=== PATIENT | male | born 1995 | race African-American/Black ===

== ENCOUNTER 2017-02-06 15:05 | Emergency (ER) | payer OTHER ==
[2017-02-06] MEDS ORDERED: SODIUM CHLORIDE 0.9% 1,000 ML IV STA (15:56)
--- NOTE | 2017-02-06 16:15 | ED ---
General Adult HPI - General Chief complaint: Extremity Injury, Upper Stated complaint: Arm Pain/Injury Time Seen by Provider: 02/06/17 15:18 Source: patient, RN notes reviewed Mode of arrival: ambulatory Limitations: no limitations - History of Present Illness Initial comments: This is a 21-year-old male who presents to the emergency department today with chief complaint of electrocution. Patient claims he was swiping his credit card in the vending machine earlier today at [facility] when he was shocked by the vending machine. He reports he felt the shock run up his left arm and that he was "grabbed by the vending machine" for a couple of seconds. He reports his left elbow is painful and he is unable to move it. He reports it is painful when placed in dependent position and feels better when in flexion and supported by right arm. Denies fever, chills, chest pain, shortness of breath, abdominal pain, nausea, vomiting, dysuria, hematuria, numbess, tingling, headache or vision changes. - Related Data Previous Rx's Medication Instructions Recorded Ibuprofen [Motrin] 800 mg PO Q6HR #30 tab 02/06/17 Allergies Allergy/AdvReac Type Severity Reaction Status Date / Time No Known Drug Allergies Allergy Unknown Unknown Verified 02/06/17 15:21 Review of Systems ROS Statement: Those systems with pertinent positive or pertinent negative responses have been documented in the HPI. ROS Other: All systems not noted in ROS Statement are negative. Past Medical History Past Medical History: No Reported History History of Any Multi-Drug Resistant Organisms: None Reported Past Surgical History: No Surgical Hx Reported Past Psychological History: No Psychological Hx Reported Smoking Status: Never smoker Past Alcohol Use History: None Reported Past Drug Use History: None Reported General Exam - General Exam Comments Initial Comments: General: Awake and alert, well-developed; in no apparent distress. HEENT: Head atraumatic, normocephalic. Pupils are equal, round and reactive to light. Extraocular movements intact. Neck: Supple. Normal ROM. Cardiovascular: Regular rate and rhythm. No murmurs, rubs or gallops. Chest symmetrical. Respiratory: Lungs clear to auscultation bilaterally. No wheezes, rales or rhonchi. Normal respiratory effort with no use of accessory muscles. Musculoskeletal: Left arm is held in flexion across body. Tenderness is elicited with palpation of left proximal forearm up to distal arm. No evidence of soft tissue swelling, omer or lacerations. Limited ROM. Patient refuses to further flex or extend elbow. Skin: [place], warm and dry without rashes or lesions. Neurological: Alert and oriented x3. CN II-XII grossly intact. Speech is fluent and answers are appropriate. No focal neuro deficits. Psychiatric: Normal mood and affect. No overt signs of depression or anxiety noted. Limitations: no limitations Course Vital Signs 02/06/17 02/06/17 02/06/17 15:21 17:00 17:48 Temperature 98.2 F Pulse Rate 60 58 L 56 L Respiratory 16 19 17 Rate Blood Pressure 146/76 133/61 124/69 O2 Sat by Pulse 98 100 100 Oximetry 02/06/17 18:03 Temperature 97.8 F Pulse Rate 54 L Respiratory 18 Rate Blood Pressure 112/60 O2 Sat by Pulse 99 Oximetry EKG Findings - EKG Comments: EKG Findings:: EKG performed at 15:44. Sinus bradycardia. RSR' or QR pattern in V1 suggests right ventricular conduction delay. ST elevation, probably due to early repolarization. Ventricular rate 54 bpm, CA interval 154, QRS duration 96, QT/QTc 452/428. Medical Decision Making - Medical Decision Making This case was discussed with attending physician, Dr. Florence. Patient will be moved from fast track to another room. Awaiting results of CBC, CMP and CK. X-ray of left elbow reveals no fracture, dislocation, subluxation, or elbow joint effusion. Results of laboratory studies and x-ray of left elbow were discussed with patient and Dr. Florence. There is an elevation of CPK, however all other labs are within normal limits. Patient is in no acute distress and appears comfortable at this time and is in agreement to be discharged home with follow-up in the next couple of days with outpatient provider. - Lab Data Result diagrams: 02/06/17 16:40 02/06/17 16:40 Lab Results 02/06/17 02/06/17 Range/Units 16:40 16:40 WBC 4.9 (4.0-11.0) k/uL RBC 5.25 (4.30-5.90) m/uL Hgb 14.3 (13.0-17.5) gm/dL Hct 45.2 (39.0-53.0) % MCV 86.2 (80.0-100.0) fL MCH 27.3 (25.0-35.0) pg MCHC 31.7 (31.0-37.0) g/dL RDW 14.1 (11.5-15.5) % Plt Count 297 (150-450) k/uL Neutrophils % 35 % Lymphocytes % 49 % Monocytes % 8 % Eosinophils % 3 % Basophils % 1 % Neutrophils # 1.7 (1.3-7.7) k/uL Lymphocytes # 2.4 (1.0-4.8) k/uL Monocytes # 0.4 (0-1.0) k/uL Eosinophils # 0.1 (0-0.7) k/uL Basophils # 0.0 (0-0.2) k/uL Manual Slide Review Performed Reactive Lymphocytes Present RBC Morphology Normal Hypochromasia Slight Sodium 140 (137-145) mmol/L Potassium 4.2 (3.5-5.1) mmol/L Chloride 102 (98-107) mmol/L Carbon Dioxide 28 (22-30) mmol/L Anion Gap 10 mmol/L BUN 19 (9-20) mg/dL Creatinine 0.99 (0.66-1.25) mg/dL Est GFR (MDRD) Af Amer >60 (>60 ml/min/1.73 sqM) Est GFR (MDRD) Non-Af >60 (>60 ml/min/1.73 sqM) Glucose 78 (74-99) mg/dL Calcium 9.5 (8.4-10.2) mg/dL Total Bilirubin 0.7 (0.2-1.3) mg/dL AST 48 (17-59) U/L ALT 48 (21-72) U/L Alkaline Phosphatase 72 (38-126) U/L Creatine Kinase 769 H (55-170) U/L Total Protein 7.9 (6.3-8.2) g/dL Albumin 4.8 (3.5-5.0) g/dL Disposition Clinical Impression: Electrocution Disposition: HOME SELF-CARE Condition: Good Instructions: Arm Pain (ED) Additional Instructions: Please take medications as prescribed. Please follow up with outpatient provider within 1-2 days. Return to ED if symptoms should worsen or any concerns arise. Prescriptions: Ibuprofen [Motrin] 800 mg PO Q6HR #30 tab Referrals: None,Stated [Primary Care Provider] - 1-2 days Jacinto Rojas MD [REFERRING] - 1-2 days Time of Disposition: 17:48
--- NOTE | 2017-02-06 16:36 | XR ---
EXAMINATION TYPE: XR elbow complete LT DATE OF EXAM: 02/06/2017 COMPARISON: NONE HISTORY: 21 year-old male left elbow pain. TECHNIQUE: 3 views FINDINGS: No acute fracture, subluxation, or dislocation. No elbow joint effusion. IMPRESSION: No acute osseous abnormality seen.
[2017-02-06 17:02] LABS: Basophils % (A) 1 %; CH 26.6; Eosinophils # (A) 0.1 k/uL (0-0.7); Eosinophils % (A) 3 %; HCT 45.2 % (39.0-53.0); HDW 2.28; HGB 14.3 gm/dL (13.0-17.5); Hypochromasia Slight; Luc # (Auto) 0.21; Luc % (Auto) 4; Lymphocytes # (A) 2.4 k/uL (1.0-4.8); Lymphocytes % (A) 49 %; MCH 27.3 pg (25.0-35.0); MCHC 31.7 g/dL (31.0-37.0); MCV 86.2 fL (80.0-100.0); Mean Platelet Volume 7.2; Monocytes # (A) 0.4 k/uL (0-1.0); Monocytes % (A) 8 %; Neutrophils # (A) 1.7 k/uL (1.3-7.7); Neutrophils % (A) 35 %; RBC 5.25 m/uL (4.30-5.90); RDW 14.1 % (11.5-15.5); WBC 4.9 k/uL (4.0-11.0); WBC (Perox) 4.97
[2017-02-06 17:11] LABS: ALT 48 U/L (21-72); AST 48 U/L (17-59); Alkaline Phosphatase 72 U/L (38-126); Anion Gap 10 mmol/L; Blood Urea Nitrogen 19 mg/dL (9-20); Calcium 9.5 mg/dL (8.4-10.2); Carbon Dioxide 28 mmol/L (22-30); Chloride 102 mmol/L (98-107); Creatine Kinase 769 U/L (55-170); Glucose 78 mg/dL (74-99); Non-African American GFR(MDRD) >60 (>60 ml/min/1.73 sqM); Potassium 4.2 mmol/L (3.5-5.1); Sodium 140 mmol/L (137-145); Total Bilirubin 0.7 mg/dL (0.2-1.3); Total Protein 7.9 g/dL (6.3-8.2)
[2017-02-06 17:38] LABS: Manual Review Performed; RBC Morphology Normal; Reactive Lymphocytes Present
[2017-02-06 18:09] VITALS: BP 112/60; PULSE 54; RESP 18; TEMP 97.8
== END 2017-02-06 18:25 | disposition home or self-care (01) ==
LOC: EC 15:05
DX: T75.4XXA Electrocution, initial encounter (principal); R00.1 Bradycardia, unspecified; R74.8 Abnormal levels of other serum enzymes; Y92.214 College as the place of occurrence of the external cause
CPT/HCPCS: 36415; 80053; 82550; 85025; 93005; 96360; 96361; 99284